=== PATIENT | male | born 1990 | race Caucasian/White ===

== ENCOUNTER 2017-01-02 08:42 | Emergency (ER) | payer MEDICAID, OTHER ==
[~2017-01-02] VITALS: Wt 82.0 kg
[~2017-01-02 08:42] MED LIST: IBUP-1542 PO; [UNRECOGNIZED DRUG - REMARK] PO
[2017-01-02 09:51] LABS: ADD SCAN DIFF NO
[2017-01-02 09:56] LABS: BASOPHILS % 0.5 % (0.0-2.0); EOSINOPHILS # 0.1 10^3/ul (0.0-0.5); EOSINOPHILS % 0.8 % (0.0-7.0); HEMATOCRIT 45.1 % (42.0-52.0); HEMOGLOBIN 15.2 g/dl (14.0-18.0); LYMPHOCYTES # 1.5 10^3/ul (0.8-2.9); LYMPHOCYTES % 25.1 % (15.0-51.0); MEAN CORPUSCULAR HEMOGLOBIN 29.8 pg (29.0-33.0); MEAN CORPUSCULAR HGB CONC 33.7 g/dl (32.0-37.0); MEAN CORPUSCULAR VOLUME 88.4 fl (82.0-101.0); MEAN PLATELET VOLUME 11.1 fl (7.4-10.4); MONOCYTE # 0.6 10^3/ul (0.3-0.9); MONOCYTES % 9.8 % (0.0-11.0); NEUTROPHIL # 3.7 10^3/ul (1.6-7.5); NEUTROPHILS % 63.3 % (39.0-77.0); PLATELET COUNT 214 10^3/UL (140-415); RED CELL DISTRIBUTION WIDTH 11.7 % (11.5-14.5); WHITE BLOOD COUNT 5.9 10^3/ul (4.8-10.8)
[2017-01-02 10:00] LABS: ADD UMIC NO; URINE BILIRUBIN (Dip) NEGATIVE (NEGATIVE); URINE BLOOD (Dip) NEGATIVE (NEGATIVE); URINE COLOR LT. YELLOW (YELLOW); URINE GLUCOSE (Dip) NEGATIVE (NEGATIVE); URINE KETONES (Dip) NEGATIVE (NEGATIVE); URINE LEUKOCYTE ESTERASE (Dip) NEGATIVE (NEGATIVE); URINE NITRITE (Dip) NEGATIVE (NEGATIVE); URINE TOTAL PROTEIN (Dip) NEGATIVE (NEGATIVE); URINE UROBILINOGEN (Dip) 0.2 E.U./dL (0.1-1.0)
--- NOTE | 2017-01-02 10:01 | RADRPT ---
PROCEDURE: CT Abdomen and Pelvis without contrast. CLINICAL INDICATION: Abdominal pain. Bilateral flank pain TECHNIQUE: CT scan of the abdomen and pelvis without contrast was performed on a multi-slice CT ma ge without intravenous contrast. Coronal and sagittal reformatted images were obtained from the axial source images. Images were reviewed on a high-resolution PACS workstation. One or more of the following does reduction techniques were used: Automated exposure control; adjustment of the mA an d/or kV according to patient size; use of the aorta of reconstruction technique. The total exam CTD I equals 8.78 mGy and the total exam DLP equals 540.77 mGy-cm. COMPARISON: CT abdomen pelvis 05/01/2016 FINDINGS: The lung bases are clear. Heart size is normal, and there is no evidence of pericardial thickening or effusion. The liver, spleen, and pancreas are normal given limitations of a noncontrast CT examination. The g allbladder is normal. The adrenal glands are normal. The kidneys without renal calculus or hydronephrosis. The aorta is of normal caliber. There is no retroperitoneal lymph node enlargment. There is no evidence of large or small bowel obstruction. A normal appendix is identified. No nawaf e fluid or fluid collections are identified. No inflammatory changes are seen. No enlarged pelvic sidewall lymph nodes are seen. The bladder is within normal limits. No free fl uid is identified. The inguinal regions are unremarkable. The bones are intact. IMPRESSION: 1. Unremarkable CT appearance of the abdomen and pelvis. No evidence of mass, lymphadenopathy, inf lammatory change, or urolithiasis. RPTAT: KK .Adi Brothers MD, MD Date Time Electronically viewed and signed by .Adi Brothers MD, MD on 01/02/2017 10:00 .B/
[2017-01-02 10:03] LABS: ALBUMIN 4.6 g/dl (3.3-4.9); POTASSIUM 3.9 mmol/L (3.5-5.1)
[2017-01-02 10:05] LABS: BILIRUBIN,INDIRECT 0.5 mg/dl (0-1.1); BILIRUBIN,TOTAL 0.5 mg/dl (0.2-1.3); CREATININE 0.72 mg/dl (0.61-1.24)
[2017-01-02 10:06] LABS: ALBUMIN/GLOBULIN RATIO 1.48; CALCIUM 9.3 mg/dl (8.4-10.2); TOTAL PROTEIN 7.7 g/dl (6.1-8.1)
[2017-01-02] MEDS ORDERED: ACET500C5 PO (10:21)
[2017-01-02] MEDS ORDERED: ONDA4TAB8 PO (10:21)
--- NOTE | 2017-01-02 12:49 | ERD ---
ER Documentation Chief Complaint Date/Time DATE: 01/02/17 TIME: 12:45 Chief Complaint ABD PAIN AND BACK PAIN X "COUPLE MONTHS" HPI Patient is a 26-year-old male who presents to the ED with 4 months of right- sided abdominal pain that radiates to his back. He states that the pain comes and goes. He denies a change in his pain and does not state that the pain is gotten worse. he denies any triggering or onset factor III months ago. Denies travel or change in foods. He states that the pain is a pressure-like sensation on the right side. He also complains of dark urine with no hematuria. Denies constipation but states that his stools are "slimy". His last bowel movement was today. Denies fever or chills. Denies chest pain, cough, shortness of breath or difficulty breathing. Denies leg pain or swelling. Denies headache, dizziness. States that he took omeprazole for 3 months as prescribed from his primary care doctor but states that it did not help with his symptoms. He also states that for the last 3 months he has drank about 20 beers per day including Friday, Friday and Friday of every weekend. He has not had any alcohol for the last 2 weeks. No other complaints. ROS All systems reviewed and are negative except as per history of present illness. Medications Home Meds Active Scripts Acetaminophen* (Tylophen*) 500 Mg Capsule, 1 CAP PO Q6H Y for PAIN AND OR ELEVATED TEMP, #20 CAP Prov:JUAN LUIS LACY PA-C 01/02/17 Ondansetron Hcl* (Zofran*) 4 Mg Tablet, 4 MG PO Q6H for NAUSEA AND/OR VOMITING, #30 TAB Prov:JUAN LUIS LACY PA-C 01/02/17 Ibuprofen* (Motrin*) 600 Mg Tab, 600 MG PO Q6, #20 TAB Prov:MARIOLA ARREDONDO PA-C 05/01/16 Reported Medications [Benadryl, Unk Dose] No Conflict Check, PO PRN 08/01/13 Allergies Allergies: Coded Allergies: bee venom (honey bee) (Verified Allergy, Severe, SWELLING, 05/01/16) PMhx/Soc Medical and Surgical Hx: pt denies Medical Hx, pt denies Surgical Hx History of Surgery: No Anesthesia Reaction: No Hx Neurological Disorder: No Hx Respiratory Disorders: No Hx Cardiac Disorders: No Hx Psychiatric Problems: No Hx Miscellaneous Medical Probl: No Hx Alcohol Use: Yes (Friday, Friday, Friday 20 beers per day in the last 4 months) Hx Substance Use: No Hx Tobacco Use: Yes Smoking Status: Current some day smoker FmHx Family History: No coronary disease, No diabetes, No other Physical Exam Vitals Vital Signs Date Time Temp Pulse Resp B/P Pulse Ox O2 Delivery O2 Flow Rate FiO2 01/02/17 08:43 98.0 78 18 137/82 99 Physical Exam GENERAL: Well-developed, well-nourished male. Appears in no acute distress. LUNG: Clear to auscultation bilaterally. No rhonchi, wheezing, rales or coarse breath sounds. HEART: Regular rate and rhythm. No murmurs, rubs or gallops. ABDOMEN: No scars, ecchymosis or rashes noted. Soft, nontender, and nondistended. Positive bowel sounds in all four quadrants. No rebound tenderness , no guarding. (-) McBurneys point tenderness. No CVA tenderness. tenderness to llq and left mid abdomen. BACK: No midline tenderness. Extremities: Equal pulses bilaterally. No peripheral clubbing, cyanosis or edema. No unilateral leg swelling. NEUROLOGIC: Alert and oriented. Moving all four extremities. 5/5 strength in all extremities. Normal speech. Steady gait. SKIN: Normal color. Warm and dry. No rashes or lesions. Capillary refill < 2 seconds Result Diagram: 01/02/17 0941 01/02/17 0941 Results 24 hrs Laboratory Tests Test 01/02/17 09:41 White Blood Count 5.910^3/ul Red Blood Count 5.1010^6/ul Hemoglobin 15.2g/dl Hematocrit 45.1% Mean Corpuscular Volume 88.4fl Mean Corpuscular Hemoglobin 29.8pg Mean Corpuscular Hemoglobin Concent 33.7g/dl Red Cell Distribution Width 11.7% Platelet Count 17339^3/UL Mean Platelet Volume 11.1fl Neutrophils % 63.3% Lymphocytes % 25.1% Monocytes % 9.8% Eosinophils % 0.8% Basophils % 0.5% Nucleated Red Blood Cells % 0.0/100WBC Neutrophils # 3.710^3/ul Lymphocytes # 1.510^3/ul Monocytes # 0.610^3/ul Eosinophils # 0.110^3/ul Basophils # 0.010^3/ul Nucleated Red Blood Cells # 0.010^3/ul Urine Color LT. YELLOW Urine Clarity CLEAR Urine pH 6.5 Urine Specific [place] <=1.005 Urine Ketones NEGATIVE Urine Nitrite NEGATIVE Urine Bilirubin NEGATIVE Urine Urobilinogen 0.2 E.U./dL Urine Leukocyte Esterase NEGATIVE Urine Hemoglobin NEGATIVE Urine Glucose NEGATIVE% Urine Total Protein NEGATIVE Sodium Level 141mmol/L Potassium Level 3.9mmol/L Chloride Level 103mmol/L Carbon Dioxide Level 24mmol/L Anion Gap 18 Blood Urea Nitrogen 9mg/dl Creatinine 0.72mg/dl Glucose Level 104mg/dl Calcium Level 9.3mg/dl Total Bilirubin 0.5mg/dl Direct Bilirubin 0.00mg/dl Indirect Bilirubin 0.5mg/dl Aspartate Amino Transf (AST/SGOT) 35IU/L Alanine Aminotransferase (ALT/SGPT) 66IU/L Alkaline Phosphatase 73IU/L Total Protein 7.7g/dl Albumin 4.6g/dl Globulin 3.10g/dl Albumin/Globulin Ratio 1.48 Lipase 69U/L Procedures/MDM ER COURSE: I kept the patient and/or family informed of laboratory and diagnostic imaging results throughout the emergency room course. EKG, MONITORS, & DIAGNOSTIC IMAGING: [place] [id number] Radiology Main Line: [phone] DIAGNOSTIC IMAGING REPORT Patient: LYUDMILA HARRIS : 1990 Age: 26 Sex: M [id number] DOS: 01/02/17 [facility]– [place][note 2] Ordering MD: JUAN LUIS LACY PA-C Location: [facility] Room/Bed: PROCEDURE: CT Abdomen and Pelvis without contrast. CLINICAL INDICATION: Abdominal pain. Bilateral flank pain TECHNIQUE: CT scan of the abdomen and pelvis without contrast was performed on a multi-slice CT scanner without intravenous contrast. Coronal and sagittal reformatted images were obtained from the axial source images. Images were reviewed on a high-resolution PACS workstation. One or more of the following does reduction techniques were used: Automated exposure control; adjustment of the mA and/or kV according to patient size; use of the aorta of reconstruction technique. The total exam CTDI equals 8.78 mGy and the total exam DLP equals 540.77 mGy-cm. COMPARISON: CT abdomen pelvis 05/01/2016 FINDINGS: The lung bases are clear. Heart size is normal, and there is no evidence of pericardial thickening or effusion. The liver, spleen, and pancreas are normal given limitations of a noncontrast CT examination. The gallbladder is normal. The adrenal glands are normal. The kidneys without renal calculus or hydronephrosis. The aorta is of normal caliber. There is no retroperitoneal lymph node enlargment. There is no evidence of large or small bowel obstruction. A normal appendix is identified. No free fluid or fluid collections are identified. No inflammatory changes are seen. No enlarged pelvic sidewall lymph nodes are seen. The bladder is within normal limits. No free fluid is identified. The inguinal regions are unremarkable. The bones are intact. IMPRESSION: 1. Unremarkable CT appearance of the abdomen and pelvis. No evidence of mass, lymphadenopathy, inflammatory change, or urolithiasis. RPTAT: KK .Adi Brothers MD, MD Date Time Electronically viewed and signed by .Adi Brothers MD, MD on 2016 10:00 .B/ CC: JUAN LUIS LACY PA-C LAB INTERPRETATION: CBC showed no evidence of systemic infection or severe anemia. CMP showed no evidence of electrolyte abnormalities, severe acidosis, alkalosis, renal failure , or liver disease. Lipase showed no evidence of acute pancreatitis. UA showed no evidence of leukocytes, nitrites or hematuria. MEDICAL DECISION MAKING: This is a 26-year-old male who presents with abdominal pain 4 months. Vital signs were reviewed. Patient is afebrile. Patient is not hypoxic. Patient is not toxic or ill-appearing. Patient has abdominal pain of unknown etiology. His CAT scan is read by radiologist is unremarkable. Low suspicion for ACS, AAA , perforated ulcer, bowel obstruction, cholecystitis, choledocholithiasis, cholangitis, pancreatitis, hepatic abscess, appendicitis, diverticulitis, gastroenteritis, hepatitis, peptic ulcer disease, HELLP syndrome. DISCHARGE: At this time, patient is stable for discharge and outpatient management with no new complaints during the ER course. Patient was sent home with Zofran and Tylenol and advised patient to follow-up with PCP or a GI specialist for further evaluation. I did advise patient about drinking cessation and education. Patient will be discharged home with instructions to recheck for new or worsening symptoms such as fever, nausea, weakness, LOC and to follow up with primary care in the next 1-2 days. Patient was advised to return to the ER for any new or worsening symptoms. Plan was discussed and patient and/or family understands and agrees. Home instructions were given. Departure Diagnosis: Primary Impression: Abdominal pain Abdominal location: generalized Qualified Code: R10.84 - Generalized abdominal pain Condition: Stable Patient Instructions: Abdominal Pain Additional Instructions: Call your primary care doctor TOMORROW for an appointment during the next 1-2 days.See the doctor sooner or return here if your condition worsens before your appointment time. JUAN LUIS LACY PA-C Jan 02, 2017 12:49
== END 2017-01-02 10:40 | disposition home or self-care (01) ==
LOC: FTE 08:42
DX: R10.84 Generalized abdominal pain (principal); F17.210 Nicotine dependence, cigarettes, uncomplicated
CPT/HCPCS: 36415; 74176; 80053; 81003; 83690; 85025; Z7502

== ENCOUNTER 2018-01-21 16:50 | Emergency (ER) | END 2018-01-21 20:22 | disposition home or self-care (01) ==